=== PATIENT | male | born 1995 | race Caucasian/White ===

== ENCOUNTER 2018-11-18 23:34 | Emergency (ER) | payer OTHER ==
[~2018-11-18] VITALS: Ht 185.4 cm; Wt 92.6 kg
[2018-11-18 23:42] VITALS: BP 134/63
== END 2018-11-19 01:38 | disposition home or self-care (01) ==
LOC: ER 23:35
DX: S61.214A Laceration without foreign body of right ring finger without damage to nail, initial encounter (principal); F17.200 Nicotine dependence, unspecified, uncomplicated; Z88.0 Allergy status to penicillin; Z88.2 Allergy status to sulfonamides; Z60.2 Problems related to living alone; X58.XXXA Exposure to other specified factors, initial encounter; Y93.89 Activity, other specified; Y92.89 Other specified places as the place of occurrence of the external cause; Y99.8 Other external cause status
CPT/HCPCS: 12001; 73140; 82948; 99283